=== PATIENT | male | born 1960 | race African-American/Black ===

== ENCOUNTER → 2021-08-22 | Outpatient (CLI) | payer OTHER ==
--- NOTE | 2021-08-22 13:06 | RAD ---
EXAM: Bilateral knees, single view. HISTORY: Degenerative joint disease. COMPARISON: None. FINDINGS: A frontal view of the knees is obtained. There is no fracture, dislocation or subluxation. There is mild left medial compartment joint space narrowing. There is mild right lateral compartment spurring. IMPRESSION: Mild bilateral knee osteoarthritis. No acute osseous finding. Electronically signed by: Miriam Campbell MD (08/22/2021 1:03 PM) [id number]
== END ==
LOC: RAD 12:29
PROVIDERS: ATTEND Physical Medicine & Rehabilitation
DX: M17.0 Bilateral primary osteoarthritis of knee (principal); M76.891 Other specified enthesopathies of right lower limb, excluding foot; M25.861 Other specified joint disorders, right knee
CPT/HCPCS: 73565

== ENCOUNTER 2021-10-12 05:29 | Inpatient (IN) | payer OTHER ==
[~2021-10-12] VITALS: Ht 190.5 cm; Wt 150.1 kg
--- NOTE | 2021-10-12 06:00 | PHYS DOC ---
Adult General Chief Complaint Chief Complaint: CHEST PAIN HPI HPI Patient is a 61 year old male presenting to the emergency department for evaluation of chest pain that started on Friday which is now 4 days ago. He says when he walked into [facility] on Friday he felt lightheaded and had to sit down but he has had no further lightheaded sensation since then. He says starting on Friday at rest he had a throbbing sensation in the center of his lower chest that did not radiate caused him shortness of breath diaphoresis nausea or vomiting. He says the chest pain can last anywhere from 30 minutes to 90 minutes at a time and nothing that he can think of brings it on such as deep breaths movements exertion or food or liquid intake. He says that the chest pain he experienced yesterday caused him diaphoresis. He has a history of hypertension diabetes and high cholesterol but he denies smoking cigarettes. He says that he had a stress test done by his primary care provider in May or June of last year and he reports that is normal and he has not required a heart catheterization or stents. He is in no acute distress with normal vital signs other than slight hypertension at 166/87. Review of Systems Review of Systems Constitutional: Denies fever or chills [] Eyes: Denies change in visual acuity, redness, or eye pain [] HENT: Denies nasal congestion or sore throat [] Respiratory: Denies cough or shortness of breath [] Cardiovascular: +CP GI: Denies abdominal pain, nausea, vomiting, bloody stools or diarrhea [] : Denies dysuria or hematuria [] Musculoskeletal: Denies back pain or joint pain [] Integument: Denies rash or skin lesions [] Neurologic: Denies headache, focal weakness or sensory changes [] All other systems were reviewed and found to be within normal limits, except as documented in this note. Current Medications Current Medications Current Medications Medications (Trade) Dose Ordered Sig/Jan Start Time Stop Time Status Last Admin Dose Admin Amlodipine Besylate (Norvasc) 10 mg 1X 10/12/21 08:15 Aspirin (Aspirin Chewable) 324 mg 1X ONCE 10/12/21 06:30 10/12/21 06:31 DC 10/12/21 06:32 324 MG Allergies Allergies Allergies Coded Allergies Type Severity Reaction Last Updated Verified No Known Drug Allergies 10/12/21 No Physical Exam Physical Exam Constitutional: Well developed, well nourished, no acute distress, non-toxic appearance. [] HENT: Normocephalic, atraumatic, bilateral external ears normal, oropharynx moist, no oral exudates, nose normal. [] Eyes: PERRLA, EOMI, conjunctiva normal, no discharge. [] Neck: Normal range of motion, no tenderness, supple, no stridor. [] Cardiovascular:Heart rate regular rhythm, no murmur [] Lungs & Thorax: Bilateral breath sounds clear to auscultation [] Abdomen: Bowel sounds normal, soft, no tenderness, no masses, no pulsatile masses. [] Skin: Warm, dry, no erythema, no rash. [] Back: No tenderness, no CVA tenderness. [] Extremities: No tenderness, no cyanosis, no clubbing, ROM intact, no edema. [] Neurologic: Alert and oriented X 3, normal motor function, normal sensory function, no focal deficits noted. [] Psychologic: Affect normal, judgement normal, mood normal. [] Current Patient Data Vital Signs Vital Signs Date Time Temp Pulse Resp B/P (MAP) Pulse Ox O2 Delivery O2 Flow Rate FiO2 10/12/21 08:08 60 14 177/84 (115) 99 Room Air 10/12/21 05:30 98.6 98.6 Lab Values Laboratory Tests Test 10/12/21 05:45 10/12/21 07:33 White Blood Count 6.0 x10^3/uL (4.0-11.0) Red Blood Count 5.07 x10^6/uL (4.30-5.70) Hemoglobin 14.0 g/dL (13.0-17.5) Hematocrit 43.4 % (39.0-53.0) Mean Corpuscular Volume 86 fL (79-100) Mean Corpuscular Hemoglobin 28 pg (25-35) Mean Corpuscular Hemoglobin Concent 32 g/dL (31-37) Red Cell Distribution Width 13.9 % (11.5-14.5) Platelet Count 237 x10^3/uL (140-400) Neutrophils (%) (Auto) 46 % (31-73) Lymphocytes (%) (Auto) 40 % (24-48) Monocytes (%) (Auto) 10 % (0-9) H Eosinophils (%) (Auto) 3 % (0-3) Basophils (%) (Auto) 1 % (0-3) Neutrophils # (Auto) 2.8 x10^3/uL (1.8-7.7) Lymphocytes # (Auto) 2.4 x10^3/uL (1.0-4.8) Monocytes # (Auto) 0.6 x10^3/uL (0.0-1.1) Eosinophils # (Auto) 0.2 x10^3/uL (0.0-0.7) Basophils # (Auto) 0.1 x10^3/uL (0.0-0.2) D-Dimer (Kaylen) < 0.27 ug/mlFEU Sodium Level 139 mmol/L (136-145) Potassium Level 3.9 mmol/L (3.5-5.1) Chloride Level 104 mmol/L (98-107) Carbon Dioxide Level 28 mmol/L (21-32) Anion Gap 7 (6-14) Blood Urea Nitrogen 17 mg/dL (8-26) Creatinine 1.2 mg/dL (0.7-1.3) Estimated GFR (Cockcroft-Gault) 74.0 BUN/Creatinine Ratio 14 (6-20) Glucose Level 142 mg/dL (70-99) H Calcium Level 9.2 mg/dL (8.5-10.1) Total Bilirubin 1.1 mg/dL (0.2-1.0) H Aspartate Amino Transferase (AST) 42 U/L (15-37) H Alanine Aminotransferase (ALT) 56 U/L (16-63) Alkaline Phosphatase 81 U/L (46-116) Troponin I High Sensitivity 7 ng/L (4-75) 6 ng/L (4-75) RE-Qov-D-Type Natriuretic Peptide 29 pg/mL (0-124) Total Protein 8.2 g/dL (6.4-8.2) Albumin 4.0 g/dL (3.4-5.0) Albumin/Globulin Ratio 1.0 (1.0-1.7) Lipase 70 U/L (73-393) L Laboratory Tests 10/12/21 05:45 Laboratory Tests 10/12/21 05:45 EKG EKG Sinus rhythm at 64 bpm with leftward axis no ST elevation or depression with biphasic T waves in leads V5 and V6 and normal intervals. Radiology/Procedures Radiology/Procedures [] Course & Med Decision Making Course & Med Decision Making I will check labs and imaging give him a dose of aspirin and reassess. He says that he is chest pain-free at this time and does not need anything for pain or nausea. Patient is hypertensive here so I will give him his home dose of Norvasc. Patient has a heart score equal to 4 putting him at moderate risk for adverse coronary event. I struggled with disposition decision as patient has a higher heart score and has chest pain with diaphoresis. His primary care provider Dr. Bocanegra is out of town at this time so I spoke to Dr. Egan who is covering for him to see if he had access to a stress test. After speaking with Dr. Egan he recommended admission to the hospital and cardiology consultation. I told patient this and he is agreeable with plan and I do think that this is a reasonable plan given his elevated heart score. Patient admitted in stable condition. Dragon Disclaimer Dragon Disclaimer This electronic medical record was generated, in whole or in part, using a voice recognition dictation system. Departure Departure Impression: Primary Impression: Chest pain at rest Additional Impression: Hypertension Disposition: ADMITTED INPATIENT Admitting Physician: Neeraj Egan Condition: STABLE Referrals: RAUL GONZALEZ MD (PCP) Problem Qualifiers SARIAH MCCAULEY DO Oct 12, 2021 06:00
--- NOTE | 2021-10-12 06:19 | RAD ---
EXAM: XR CHEST 1V 10/12/2021 5:58 AM CLINICAL INDICATION: Chest pain COMPARISON: None TECHNIQUE: AP upright view of the chest FINDINGS: The heart is normal in size. Lungs are adequately expanded. No consolidation, pleural effu billy, or pneumothorax. No acute osseous abnormality. IMPRESSION: No acute cardiopulmonary abnormality. Electronically signed by: Dinorah Wagner MD (10/12/2021 6:16 AM) [facility]
[2021-10-12 06:23] LABS: CALCIUM 9.2 mg/dL (8.5-10.1); CREATININE 1.2 mg/dL (0.7-1.3); POTASSIUM 3.9 mmol/L (3.5-5.1)
[2021-10-12 06:28] LABS: TOTAL BILIRUBIN 1.1 mg/dL (0.2-1.0); TOTAL PROTEIN 8.2 g/dL (6.4-8.2)
[2021-10-12] MEDS ORDERED: ASPIRIN CHEWABLE 81 MG TABLET. PO ONE (06:30)
[2021-10-12 06:40] LABS: BASO # 0.1 x10^3/uL (0.0-0.2); BASO % 1 % (0-3); EOS # 0.2 x10^3/uL (0.0-0.7); EOS % 3 % (0-3); HEMATOCRIT 43.4 % (39.0-53.0); LYMPH # 2.4 x10^3/uL (1.0-4.8); LYMPH % 40 % (24-48); MEAN CORPUSCULAR HEMOGLOBIN 28 pg (25-35); MEAN CORPUSCULAR HGB CONC 32 g/dL (31-37); MEAN CORPUSCULAR VOLUME 86 fL (79-100); MONO # 0.6 x10^3/uL (0.0-1.1); MONO % 10 % (0-9); NEUT # 2.8 x10^3/uL (1.8-7.7); NEUT % 46 % (31-73); PLATELET COUNT 237 x10^3/uL (140-400); RED BLOOD COUNT 5.07 x10^6/uL (4.30-5.70); RED CELL DISTRIBUTION WIDTH 13.9 % (11.5-14.5)
[2021-10-12] MEDS ORDERED: MORPHINE SULFATE 4 MG/ML INJ. IVP PRN (08:45)
[2021-10-12] MEDS ORDERED: ONDANSETRON PF 4 MG/2 ML VIAL. IVP PRN (08:45)
[2021-10-12] MEDS ORDERED: ACETAMINOPHEN 325 MG TABLET. PO PRN (09:15)
[2021-10-12] MEDS ORDERED: hydrALAZINE 20 MG/ML VIAL. IVP PRN (09:15)
[2021-10-12] MEDS: PANTOPRAZOLE 40 MG TABLET.DR. PO SCH (09:20)
--- NOTE | 2021-10-12 09:23 | PDOC ---
Provider Note Date of Service: DATE: 10/12/21 TIME: 09:23 Provider Note H&P dictated #[id number] Justifications for Admission Other Justification FRANKIE ALONSO MD Oct 12, 2021 09:23
[2021-10-12] MEDS: ASPIRIN ENTERIC COATED 81 MG TABLET.DR. PO SCH (09:30)
--- NOTE | 2021-10-12 09:55 | HP ---
DATE OF SERVICE: 10/12/2021 ADMIT DATE: 10/12/2021 HISTORY OF PRESENT ILLNESS: This is a 61-year-old male who has a history of hypertension and hyperlipidemia, started having dizziness 5 days ago on Friday. Dizziness has continued to gradually getting worse and has had several episodes. He had one episode with diaphoresis. Next day, on Friday, he started having chest pains that are in the substernal area as well as in the midsternal area with some cramping. He denies any nausea, heartburn, abdominal pain, constipation, diarrhea, fever, cold, cough, congestion. He has had episodes of fast heartbeat and one episode of diaphoresis. The chest pain would last at least 15 minutes. The pain is nonradiating. He has had no significant dyspnea. He woke up this morning with chest pains at 4:00 a.m. today and then came to the Emergency Room. The patient has had a stress test done around June of last year and apparently it was negative, but we do not have access to it. In the Emergency Room, the patient was evaluated and because of his multiple risk factors and chest pain. The patient was admitted for further evaluation and management. REVIEW OF SYSTEMS: As noted in the history of present illness. The patient does not have any other complaints at this time. PAST MEDICAL HISTORY: The patient has a history of hypertension, diabetes, hyperlipidemia. PAST SURGICAL HISTORY: Includes umbilical hernia repair in 2004. FAMILY HISTORY: Positive for cancer, coronary artery disease and asthma. ALLERGIES: No known any. MEDICATIONS: Include atorvastatin, amlodipine and aspirin. I do believe he is on metformin. SOCIAL HISTORY: No history of smoking, alcoholism, or drug abuse. PHYSICAL EXAMINATION: VITAL SIGNS: Temperature 98.6, pulse 62 per minute, respirations 20 per minute, blood pressure 166/87 mmHg. GENERAL: The patient is a middle-aged male who is alert, oriented x 3, and not in acute distress. EYES: Pupils reactive to light. Conjunctivae pink. Sclerae white. HENT: Unremarkable. NECK: Supple. JVP normal. No thyromegaly. Trachea midline. LUNGS: Clear. CHEST: Nontender. CARDIOVASCULAR: S1, S2, regular. ABDOMEN: Soft, obese, nontender, no guarding, no rigidity. Bowel sounds present. EXTREMITIES: No edema, no cyanosis, no calf tenderness. CENTRAL NERVOUS SYSTEM: Alert and oriented. No acute changes. LABORATORY FINDINGS: Sodium 139, potassium 3.9, BUN 17, creatinine 1.2, glucose 142, calcium 9.2, bilirubin 1.1, AST 42, lipase 70. Troponin 7. BNP 29. WBC count 6, hemoglobin 14, platelet count 237,000. Chest x-ray did not show any acute cardiopulmonary abnormality. IMPRESSION: 1. Chest pain, rule out myocardial infarction. 2. Hypertension. 3. Hyperlipidemia. 4. Diabetes mellitus. PLAN: Admit to [facility]. Continue cardiac monitoring. Obtain serial cardiac enzymes and EKG. Consult Dr. Baptiste for Cardiology evaluation and management. Continue home medications. Because the blood pressure is high, I will order hydralazine 10 mg IV q. 4 hours p.r.n. For details, please refer to the orders. I will also start him on subcutaneous Lovenox for DVT prophylaxis and p.o. Protonix for possible gastroesophageal reflux disease. For details, please refer to the orders. MARIBELL DR: Mallory TID: [id number] CC: RAUL GONZALEZ MD
[2021-10-12 10:30] VITALS: BP 176/84
[2021-10-12 11:30] VITALS: BP 167/78
--- NOTE | 2021-10-12 11:37 | PDOC2 ---
REDD SPRINGER [employer] 10/12/21 1137: CARDIAC CONSULT DATE OF CONSULT Date of Consult DATE: 10/12/21 TIME: 11:11 REASON FOR CONSULT Reason for Consult: Chest pain, Hypertension REFERRING PHYSICIAN Referring Physician: Keyla SOURCE Source: Chart review, Patient HISTORY OF PRESENT ILLNESS HISTORY OF PRESENT ILLNESS This is a pleasant 61 yo male admitted for complains of chest pain. Reports that this occurs with eating and also at times with exertion. Started Friday lasting 10-15 minutes. Took some ASA. No SOA/BETANCUR, no nausea or vomiting, palpitations, jaw tightness or arm heaviness. He is unsure if he had a recent stress test but did not fit the description of a lexiscan just EKG. No recent falls or injury and no fever or chills. No dizziness or syncope. PAST MEDICAL HISTORY Cardiovascular: HTN, Hyperlipidemia Pulmonary: No pertinent hx CENTRAL NERVOUS SYSTEM: Other (No pertinent history) GI: No pertinent hx Heme/Onc: No pertinent hx Hepatobiliary: No pertinent hx Psych: No pertinent hx Musculoskeletal: Osteoarthritis Rheumatologic: No pertinent hx Infectious disease: No pertinent hx ENT: No pertinent hx Renal/: No pertinent hx Endocrine: Diabetes (2) Dermatology: No pertinent hx FAMILY HISTORY Family History: Coronary Artery Disease SOCIAL HISTORY Smoke: No ALCOHOL: none Drugs: None Lives: with Family (spouse) CURRENT MEDICATIONS CURRENT MEDICATIONS Current Medications Medications (Trade) Dose Ordered Sig/Jan Route PRN Reason Start Time Stop Time Status Last Admin Dose Admin Aspirin (Aspirin Chewable) 324 mg 1X ONCE PO 10/12/21 06:30 10/12/21 06:31 DC 10/12/21 06:32 Amlodipine Besylate (Norvasc) 10 mg 1X PO 10/12/21 08:15 10/12/21 09:45 ALLERGIES ALLERGIES: Coded Allergies: No Known Drug Allergies (Unverified , 10/12/21) ROS Review of System 14 point ROS evaluated with pertinent positives noted per HPI PHYSICAL EXAM General: Alert, Oriented X3, Cooperative, No acute distress HEENT: Atraumatic, Mucous membr. moist/pink Lungs: Clear to auscultation, Normal air movement Heart: Regular rate (SR), Normal S1, Normal S2, No murmurs Abdomen: Soft, No tenderness Extremities: No cyanosis, No edema Skin: No breakdown, No significant lesion Neuro: Normal speech, Sensation intact Psych/Mental Status: Mental status NL, Mood NL MUSCULOSKELETAL: Osteoarthritic changes both hands VITALS/I&O VITALS/I&O: Vital Signs Date Time Temp Pulse Resp B/P (MAP) Pulse Ox O2 Delivery O2 Flow Rate FiO2 10/12/21 09:45 55 173/128 10/12/21 08:08 14 99 Room Air 10/12/21 05:30 98.6 98.6 LABS Lab: Laboratory Tests Test 10/12/21 05:45 10/12/21 07:33 White Blood Count 6.0 x10^3/uL (4.0-11.0) Red Blood Count 5.07 x10^6/uL (4.30-5.70) Hemoglobin 14.0 g/dL (13.0-17.5) Hematocrit 43.4 % (39.0-53.0) Mean Corpuscular Volume 86 fL (79-100) Mean Corpuscular Hemoglobin 28 pg (25-35) Mean Corpuscular Hemoglobin Concent 32 g/dL (31-37) Red Cell Distribution Width 13.9 % (11.5-14.5) Platelet Count 237 x10^3/uL (140-400) Neutrophils (%) (Auto) 46 % (31-73) Lymphocytes (%) (Auto) 40 % (24-48) Monocytes (%) (Auto) 10 % (0-9) H Eosinophils (%) (Auto) 3 % (0-3) Basophils (%) (Auto) 1 % (0-3) Neutrophils # (Auto) 2.8 x10^3/uL (1.8-7.7) Lymphocytes # (Auto) 2.4 x10^3/uL (1.0-4.8) Monocytes # (Auto) 0.6 x10^3/uL (0.0-1.1) Eosinophils # (Auto) 0.2 x10^3/uL (0.0-0.7) Basophils # (Auto) 0.1 x10^3/uL (0.0-0.2) D-Dimer (Kaylen) < 0.27 ug/mlFEU Sodium Level 139 mmol/L (136-145) Potassium Level 3.9 mmol/L (3.5-5.1) Chloride Level 104 mmol/L (98-107) Carbon Dioxide Level 28 mmol/L (21-32) Anion Gap 7 (6-14) Blood Urea Nitrogen 17 mg/dL (8-26) Creatinine 1.2 mg/dL (0.7-1.3) Estimated GFR (Cockcroft-Gault) 74.0 BUN/Creatinine Ratio 14 (6-20) Glucose Level 142 mg/dL (70-99) H Calcium Level 9.2 mg/dL (8.5-10.1) Total Bilirubin 1.1 mg/dL (0.2-1.0) H Aspartate Amino Transferase (AST) 42 U/L (15-37) H Alanine Aminotransferase (ALT) 56 U/L (16-63) Alkaline Phosphatase 81 U/L (46-116) Troponin I High Sensitivity 7 ng/L (4-75) 6 ng/L (4-75) JG-Kgv-E-Type Natriuretic Peptide 29 pg/mL (0-124) Total Protein 8.2 g/dL (6.4-8.2) Albumin 4.0 g/dL (3.4-5.0) Albumin/Globulin Ratio 1.0 (1.0-1.7) Lipase 70 U/L (73-393) L Laboratory Tests 10/12/21 05:45 Laboratory Tests 10/12/21 05:45 ASSESSMENT/PLAN ASSESSMENT/PLAN 1. Chest pain: mixed features 2. HTN: labile 3. asymptomatic SB: lowest 50s 4. HLP: no statin 5. DM2: takes metformin per PCP 6. Morbid obesity Recommendations 1. Discussed ischemic workup and would prefer for MPI and will arrange as outpt. TTE today 2. Follow up in office. 3. Unclear what HTN meds he has and will start on lisinopril. ASA 4. Statin per FLP. Will also check TSH JUAN LIND MD 10/12/211928: CARDIAC CONSULT ASSESSMENT/PLAN ASSESSMENT/PLAN The patient was seen and interviewed as well as examined at the bedside. The chart was reviewed. The case was discussed. Agree with the plan of care. REDD [employer] Oct 12, 2021 11:37 JUAN LIND MD Oct 12, 2021 19:29
[2021-10-12 12:01] LABS: CHOLESTEROL/HDL RATIO 2.2
[2021-10-12] MEDS ORDERED: PERFLUTREN PROTEIN-A MICROSPHR 0.22 MG/ML 3 ML VIAL. IVP ONE ×2 (13:45→13:50)
[2021-10-12] MEDS: LISINOPRIL 20 MG TABLET PO SCH (13:46)
[2021-10-12] MEDS: ENOXAPARIN 40 MG/0.4 ML SYRINGE. SQ SCH ×2 (13:47→20:20)
[2021-10-12 15:00] VITALS: BP 161/80
[2021-10-12] MEDS ORDERED: AMLO-186 PO (16:23)
[2021-10-12] MEDS ORDERED: OMEG1CAP38 PO (16:23)
[2021-10-12] MEDS ORDERED: METF500T16 PO (16:23)
[2021-10-12] MEDS ORDERED: ATOR40TA59 PO (16:23)
[2021-10-12] MEDS ORDERED: MULT400T3 PO (16:23)
--- NOTE | 2021-10-12 18:27 | CARD ---
MR#: [id number] Date of Study: 10/12/2021 Ordering Physician: REDD SPRINGER, Referring Physician: REDD SPRINGER Tech: Do Deluca [facility] APPROVED REPORT EXAM: Two-dimensional and M-mode echocardiogram with Doppler and color Doppler. Other Information Quality : Technically LimitedHR: 54bpm Rhythm : NSR INDICATION Chest Pain Echo Enhancing Agent Indication: Endocardial border delineation Agent/Amount Used: Optison 3mL RISK FACTORS Hypertension Obesity Hyperlipidemia 2D DIMENSIONS RVDd3.4 (2.9-3.5cm)Left Atrium(2D)4.0 (1.6-4.0cm) IVSd1.2 (0.7-1.1cm)Aortic Root(2D)3.6 (2.0-3.7cm) LVDd5.0 (3.9-5.9cm)LVOT Diameter2.2 (1.8-2.4cm) PWd1.1 (0.7-1.1cm)LVDs2.7 (2.5-4.0cm) FS (%) 45.0 %SV88.0 ml LVEF(%)76.1 (>50%) Aortic Valve AoV Peak Praveen.115.2cm/sAoV VTI28.7cm AO Peak GR.5.3mmHgLVOT Peak Praveen.108.2cm/s AO Mean GR.3mmHgAVA (VMAX)3.61cm2 Mitral Valve MV E Dgwqrzbj03.5cm/sMV DECEL [id number] MV A Mcuqcwqp69.6cm/sE/A Ratio0.7 Pulmonary Valve PV Peak Gllkcqox972.5cm/s LEFT VENTRICLE The left ventricle is normal size. There is mild concentric left ventricular hypertrophy. The left ve ntricular systolic function is normal. The ejection fraction estimated at 65 to 70%. There is normal LV segmental wall motion. Transmitral Doppler flow pattern is Grade I-abnormal relaxation pattern. RIGHT VENTRICLE The right ventricle is normal size. There is normal right ventricular wall thickness. The right ventr icular systolic function is normal. ATRIA The left atrium size is normal. The right atrium size is normal. The interatrial septum is intact wit h no evidence for an atrial septal defect or patent foramen ovale as noted on 2-D or Doppler imaging. AORTIC VALVE The aortic valve is normal in structure and function. Doppler and Color Flow revealed no significant aortic regurgitation. There is no significant aortic valvular stenosis. MITRAL VALVE The mitral valve is normal in structure and function. There is no evidence of mitral valve prolapse. There is no mitral valve stenosis. Doppler and Color Flow revealed no mitral valve regurgitation note d. TRICUSPID VALVE The tricuspid valve is normal in structure and function. Doppler and Color Flow revealed no tricuspid valve regurgitation noted. There is no tricuspid valve stenosis. PULMONIC VALVE The pulmonary valve is normal in structure and function. Doppler and Color Flow revealed no pulmonic valvular regurgitation. GREAT VESSELS The aortic root is normal in size. The ascending aorta is normal in size. The IVC is normal in size a nd collapses >50% with inspiration. PERICARDIAL EFFUSION There is no evidence of significant pericardial effusion. Critical Notification Critical Value: No <Conclusion> The left ventricular systolic function is normal. The ejection fraction estimated at 65 to 70%. There is normal LV segmental wall motion. Transmitral Doppler flow pattern is Grade I-abnormal relaxation pattern. There is no evidence of significant pericardial effusion. Signed by : Ronen Baptiste, Electronically Approved : 10/12/2021 18:26:31
[2021-10-12 19:00] VITALS: BP 144/75
[2021-10-12 23:00] VITALS: BP 99/57
[2021-10-13 03:00] VITALS: BP 127/75
[2021-10-13 07:00] VITALS: BP 147/72
--- NOTE | 2021-10-13 07:18 | PDOC ---
PROGRESS NOTES Date of Service: DATE: 10/13/21 TIME: 07:17 Subjective Subjective Denied any chest pain. Objective Objective Vital Signs Date Time Temp Pulse Resp B/P (MAP) Pulse Ox O2 Delivery O2 Flow Rate FiO2 10/13/21 03:00 98.4 53 16 127/75 (92) 96 98.4 10/12/21 20:00 Room Air Intake and Output 10/13/21 07:00 Intake Total 520 ml Balance 520 ml Intake Oral 520 ml # Voids 1 Physical Exam Abdomen: Soft, No tenderness Heart: Regular rate (SR), Normal S1, Normal S2, No murmurs Extremities: No cyanosis, No edema General: Alert, Oriented X3, Cooperative, No acute distress HEENT: Atraumatic, Mucous membr. moist/pink Lungs: Clear to auscultation, Normal air movement MUSCULOSKELETAL: Osteoarthritic changes both hands Neuro: Normal speech, Sensation intact Psych/Mental Status: Mental status NL, Mood NL Skin: No breakdown, No significant lesion Assessment Assessment 1. Chest pain: mixed features. TN ruled out. 2D echo showed normal LV systolic function without any wall motion abnormalities. 2. HTN: Controlled 3. asymptomatic SB: lowest 50s 4. HLP: no statin 5. DM2: takes metformin per PCP 6. Morbid obesity Recommendations 1. Plan ischemic work-up as an outpatient 2. Follow up in office as scheduled. 3. Continue current medical regimen Plan Plan of Care Problems Medical Problems: (1) Chest pain at rest Status: Acute (2) Hypertension Status: Acute Comment Review of Relevant I have reviewed the following items abhilash (where applicable) has been applied. Labs Laboratory Tests Test 10/12/21 07:33 10/12/21 12:10 10/12/21 17:28 10/12/21 21:17 Troponin I High Sensitivity 6 ng/L (4-75) Glucose (Fingerstick) 139 mg/dL (70-99) 82 mg/dL (70-99) 107 mg/dL (70-99) Medications Current Medications Acetaminophen (Tylenol) 650 mg PRN Q6HRS PRN PO MILD PAIN / TEMP > 100.3'F; Start 10/12/21 at 09:15 Amlodipine Besylate (Norvasc) 10 mg 1X PO Last administered on 10/12/21at 09:45; Start 10/12/21 at 08:15 Aspirin (Ecotrin) 81 mg DAILYWBKFT PO ; Start 10/12/21 at 09:30 Enoxaparin Sodium (Lovenox 40mg Syringe) 40 mg BID SQ Last administered on 10/12/21at 20:20; Start 10/12/21 at 10:00 Hydralazine HCl (Apresoline Inj) 10 mg PRN Q4HRS PRN IVP ELEVATED BP, SEE COMMENTS; Start 10/12/21 at 09:15 Lisinopril (Prinivil) 20 mg DAILY PO Last administered on 10/12/21at 13:46; Start 10/12/21 at 12:00 Morphine Sulfate (Morphine Sulfate) 4 mg PRN Q2HR PRN IVP PAIN; Start 10/12/21 at 08:45; Stop 10/13/21 at 08:44 Ondansetron HCl (Zofran) 4 mg PRN Q8HRS PRN IVP NAUSEA/VOMITING; Start 10/12/21 at 08:45; Stop 10/13/21 at 08:44 Pantoprazole Sodium (Protonix) 40 mg DAILYAC PO ; Start 10/12/21 at 09:20 Perflutren Protein Type A Microsphe (Optison) 0.66 mg 1X ONCE IVP Last administered on 10/12/21at 16:15; Start 10/12/21 at 13:45; Stop 10/12/21 at 13:48; Status DC Perflutren Protein Type A Microsphe (Optison) 0.66 mg STK-MED ONCE IVP ; Start 10/12/21 at 13:50; Stop 10/12/21 at 13:50; Status DC Vitals/I & O Vital Sign - Last 24 Hours 10/12/21 10/12/21 10/12/21 10/12/21 07:21 08:08 09:45 10:30 Temp 98.1 98.1 Pulse 52 60 55 58 Resp 16 14 16 B/P (MAP) 192/86 (121) 177/84 (115) 173/128 176/84 (114) Pulse Ox 100 99 97 O2 Delivery Room Air Room Air Room Air 10/12/21 10/12/21 10/12/21 10/12/21 11:30 11:38 13:46 15:00 Temp 98.0 98.0 98.0 98.0 Pulse 58 63 58 Resp 16 16 B/P (MAP) 167/78 (107) 167/78 161/80 (107) Pulse Ox 97 99 O2 Delivery Room Air Room Air Room Air 10/12/21 10/12/21 10/12/21 10/13/21 19:00 20:00 23:00 03:00 Temp 98.8 97.0 98.4 98.8 97.0 98.4 Pulse 54 46 53 Resp 16 16 16 B/P (MAP) 144/75 (98) 99/57 (71) 127/75 (92) Pulse Ox 95 96 96 O2 Delivery Room Air Intake and Output 10/12/21 10/12/21 10/13/21 15:00 23:00 07:00 Intake Total 400 ml 120 ml Balance 400 ml 120 ml REINALDO STALLWORTH MD Oct 13, 2021 07:17
[2021-10-13 08:11] LABS: BASO % 1 % (0-3); EOS # 0.2 x10^3/uL (0.0-0.7); EOS % 4 % (0-3); HEMATOCRIT 41.7 % (39.0-53.0); HEMOGLOBIN 13.6 g/dL (13.0-17.5); LYMPH # 2.5 x10^3/uL (1.0-4.8); LYMPH % 52 % (24-48); MEAN CORPUSCULAR HEMOGLOBIN 28 pg (25-35); MEAN CORPUSCULAR HGB CONC 33 g/dL (31-37); MEAN CORPUSCULAR VOLUME 86 fL (79-100); MONO # 0.4 x10^3/uL (0.0-1.1); MONO % 9 % (0-9); NEUT # 1.7 x10^3/uL (1.8-7.7); NEUT % 35 % (31-73); PLATELET COUNT 211 x10^3/uL (140-400); RED BLOOD COUNT 4.83 x10^6/uL (4.30-5.70); RED CELL DISTRIBUTION WIDTH 14.1 % (11.5-14.5); WHITE BLOOD COUNT 4.9 x10^3/uL (4.0-11.0)
[2021-10-13 08:25] LABS: CALCIUM 8.9 mg/dL (8.5-10.1); CREATININE 1.1 mg/dL (0.7-1.3); GFR 81.8; POTASSIUM 3.9 mmol/L (3.5-5.1)
[2021-10-13] MEDS: ASPIRIN ENTERIC COATED 81 MG TABLET.DR. PO SCH (09:12)
[2021-10-13] MEDS: PANTOPRAZOLE 40 MG TABLET.DR. PO SCH (09:12)
[2021-10-13] MEDS: ENOXAPARIN 40 MG/0.4 ML SYRINGE. SQ SCH (09:13)
[2021-10-13] MEDS: LISINOPRIL 20 MG TABLET PO SCH (09:13)
[2021-10-13] MEDS ORDERED: PANT40TA77 PO (10:12)
[2021-10-13] MEDS ORDERED: ASPI-886 PO (10:12)
[2021-10-13] MEDS ORDERED: LISI-130 PO (10:12)
--- NOTE | 2021-10-13 10:14 | DISCH ---
DISCHARGE INSTRUCTIONS Condition on Discharge Condition on Discharge: Stable Activity After Discharge Activity Instructions for Disc: Activity as tolerated Diet after Discharge Diet after Discharge: Cardiac (ADA) Contacting the [facility] after DC Call your doctor for: Concerns you may have Follow-Up Follow up with: in 5 days Follow Up With: FRANKIE Berry MD Oct 13, 2021 10:14
[2021-10-13 11:00] VITALS: BP 151/74
--- NOTE | 2021-10-13 11:07 | PDOC3 ---
IM DISCHARGE SUMMARY Date of Admission Date of Admission Date of Admission: Oct 12, 2021 at 14:40 Date of Discharge Date of Discharge October 13, 2021 Consults Consults Ronen Baptiste MD Labs Labs Laboratory Tests Test 10/12/21 12:10 10/12/21 17:28 10/12/21 21:17 10/13/21 06:40 Glucose (Fingerstick) 139 mg/dL (70-99) H 82 mg/dL (70-99) 107 mg/dL (70-99) H White Blood Count 4.9 x10^3/uL (4.0-11.0) Red Blood Count 4.83 x10^6/uL (4.30-5.70) Hemoglobin 13.6 g/dL (13.0-17.5) Hematocrit 41.7 % (39.0-53.0) Mean Corpuscular Volume 86 fL (79-100) Mean Corpuscular Hemoglobin 28 pg (25-35) Mean Corpuscular Hemoglobin Concent 33 g/dL (31-37) Red Cell Distribution Width 14.1 % (11.5-14.5) Platelet Count 211 x10^3/uL (140-400) Neutrophils (%) (Auto) 35 % (31-73) Lymphocytes (%) (Auto) 52 % (24-48) H Monocytes (%) (Auto) 9 % (0-9) Eosinophils (%) (Auto) 4 % (0-3) H Basophils (%) (Auto) 1 % (0-3) Neutrophils # (Auto) 1.7 x10^3/uL (1.8-7.7) L Lymphocytes # (Auto) 2.5 x10^3/uL (1.0-4.8) Monocytes # (Auto) 0.4 x10^3/uL (0.0-1.1) Eosinophils # (Auto) 0.2 x10^3/uL (0.0-0.7) Basophils # (Auto) 0.0 x10^3/uL (0.0-0.2) Sodium Level 141 mmol/L (136-145) Potassium Level 3.9 mmol/L (3.5-5.1) Chloride Level 105 mmol/L (98-107) Carbon Dioxide Level 30 mmol/L (21-32) Anion Gap 6 (6-14) Blood Urea Nitrogen 17 mg/dL (8-26) Creatinine 1.1 mg/dL (0.7-1.3) Estimated GFR (Cockcroft-Gault) 81.8 Glucose Level 108 mg/dL (70-99) H Calcium Level 8.9 mg/dL (8.5-10.1) Test 10/13/21 07:55 Glucose (Fingerstick) 96 mg/dL (70-99) Laboratory Tests 10/13/21 06:40 Laboratory Tests 10/13/21 06:40 Brief hospital course Brief hospital course This is a 61-year-old male who has a history of hypertension and hyperlipidemia, started having dizziness 5 days ago on Friday. Dizziness has continued to gradually getting worse and has had several episodes. He had one episode with diaphoresis. Next day, on Friday, he started having chest pains that are in the substernal area as well as in the midsternal area with some cramping. He denies any nausea, heartburn, abdominal pain, constipation, diarrhea, fever, cold, cough, congestion. He has had episodes of fast heartbeat and one episode of diaphoresis. The chest pain would last at least 15 minutes. The pain is nonradiating. He has had no significant dyspnea. He woke up this morning with chest pains at 4:00 a.m. today and then came to the Emergency Room. The patient has had a stress test done around June of last year and apparently it was negative, but we do not have access to it. In the Emergency Room, the patient was evaluated and because of his multiple risk factors and chest pain. The patient was admitted for further evaluation and management. For more details regarding the past history, family history, social history, surgical history and other details, please refer to the H&P. 1. Chest pain, rule out myocardial infarction. 2. Hypertension. 3. Hyperlipidemia. 4. Diabetes mellitus. PLAN: Admit to [facility]. Continue cardiac monitoring. Obtain serial cardiac enzymes and EKG. Consult Dr. Baptiste for Cardiology evaluation and management. Continue home medications. Because the blood pressure is high, I will order hydralazine 10 mg IV q. 4 hours p.r.n. For details, please refer to the orders. I will also start him on subcutaneous Lovenox for DVT prophylaxis and p.o. Protonix for possible gastroesophageal reflux disease. Echocardiogram: The left ventricular systolic function is normal. The ejection fraction estimated at 65 to 70%. There is normal LV segmental wall motion. Transmitral Doppler flow pattern is Grade I-abnormal relaxation pattern. There is no evidence of significant pericardial effusion. Patient is clinically stable and myocardial infarction has been ruled out. He will get outpatient stress test. He will follow up with the transferrer as outpatient. Medications Medications reviewed and reconciled for discharge. Home Meds Active Scripts Pantoprazole Sodium (PANTOPRAZOLE SODIUM ) 40 Mg Tablet., 40 MG PO DAILYAC for GERD for 30 Days, #30 TAB.SR Prov:FRANKIE ALONSO MD 10/13/21 Aspirin (ASPIRIN EC) 81 Mg Tablet., 81 MG PO DAILYWBKFT for possible CAD for 30 Days, #30 TAB.SR Prov:FRANKIE ALONSO MD 10/13/21 Lisinopril (LISINOPRIL) 40 Mg Tablet, 40 MG PO DAILY for HTN for 30 Days, #30 TAB Prov:FRANKIE ALONSO MD 10/13/21 Reported Medications Multivitamin With Folic Acid (ONE DAILY MULTIVITAMIN TABLET) 400 Mcg Tablet, 1 TAB PO DAILY for supplement for 30 Days, #30 TAB 0 Refills 10/12/21 Olmito-3 Fatty Acids/Fish Oil (OMEGA 3 FISH OIL SOFTGEL) 1 Each Capsule.dr, 1 EACH PO DAILY for supplement, CAP 10/12/21 Amlodipine Besylate (AMLODIPINE BESYLATE) 5 Mg Tablet, 5 MG PO BID for HTN, TAB 10/12/21 Atorvastatin Calcium (ATORVASTATIN CALCIUM) 40 Mg Tablet, 1 TAB PO DAILY for hld, #30 TAB 5 Refills 10/12/21 Metformin Hcl (METFORMIN HCL) 500 Mg Tablet, 500 MG PO BIDWMEALS for ANTI- DIABETIC, TAB 0 Refills 10/12/21 Allergy Allergies Coded Allergies Type Severity Reaction Last Updated Verified No Known Drug Allergies 10/12/21 No Follow up See in 5 to 7 days. DISPOSITION: Home Comments Discharge Management - 35 minutes. For other details please refer to discharge instructions Justicifation of Admission Dx: Justifications for Admission: Justification of Admission Dx: Yes (Chest pain. Myocardial infarction ruled out.) FRANKIE ALOSNO MD Oct 13, 2021 11:07
--- NOTE | 2021-10-13 12:42 | NUR ---
Discharge Note: [facility] Discharge instructions and discharge home medications reviewed with Patient and a copy given. All questions have been answered and understanding verbalized. The following instructions and handouts were given: worsening symptoms, medication education, and follow up instructions. Discontinued lines and drains: IV discontinued from from LAC, skin intact, and telemetry removed. Patient discharged to home with self care via private transportation.
== END 2021-10-13 12:35 | disposition home or self-care (01) | DRG 392 ==
LOC: ER 05:29 → 2 NORTH 08:45 → OBSVTOIN 14:40
PROVIDERS: ADMIT Internal Medicine; ATTEND Internal Medicine
DX: K21.9 Gastro-esophageal reflux disease without esophagitis (principal); Z68.41 Body mass index [BMI] 40.0-44.9, adult; E11.9 Type 2 diabetes mellitus without complications; E66.01 Morbid (severe) obesity due to excess calories; E78.00 Pure hypercholesterolemia, unspecified; E78.5 Hyperlipidemia, unspecified; I10 Essential (primary) hypertension; Z82.49 Family history of ischemic heart disease and other diseases of the circulatory system; Z82.5 Family history of asthma and other chronic lower respiratory diseases; R61 Generalized hyperhidrosis; M19.90 Unspecified osteoarthritis, unspecified site
CPT/HCPCS: 99285; C8929; 36415; 71045; 80048; 80053; 80061; 82962; 83690; 83880; 84443; 84484; 85025; 85379; G0378; G0379; J1650; Q9956